=== PATIENT | female | born 1955 | race Caucasian/White ===

== ENCOUNTER 2025-01-03 07:56 | Outpatient (REF) | payer MEDICARE, SELFPAY ==
--- NOTE | ~2025-01-03 | XR_ITS ---
EXAMINATION: XR KNEE, LEFT CLINICAL INFORMATION: M25.562 - Pain in left knee COMPARISON: None available. TECHNIQUE: AP view bilateral knees standing, lateral and patellofemoral views left knee. FINDINGS: RIGHT KNEE: No fracture, dislocation, or suspicious bone lesion. Chondrocalcinosis in the medial and lateral joint compartments. Mild to moderate medial, and mild lateral compartment osteoarthrosis. Normal soft tissues. LEFT KNEE: No fracture, dislocation, or suspicious bone lesion. There is severe lateral compartment joint space narrowing with ckjl-cu-llsq appearance, subchondral sclerosis, and marginal osteophytic spurring. There is compensatory widening of the medial compartment with resultant valgus angulation of the knee. Yybt-[id number] changes of arthritis in the patellofemoral joint. Severe chondrocalcinosis in the medial and lateral compartments. There is a suprapatellar joint effusion with a small associated amorphous calcification. There is no soft tissue abnormality. XR/XR knee LT 3V IMPRESSION: 1. Tricompartmental arthrosis of the LEFT knee, severe in the lateral compartment with resultant valgus angulation of the knee. Iwbo-vy-ornc appearance within the lateral compartment. 2. Diffuse bilateral chondrocalcinosis consistent with CPPD. 3. Left knee suprapatellar joint effusion with calcifications in keeping with calcific bursitis. Electronically signed by: Kwadwo Bernal MD 01/03/2025 11:10 AM EDT
--- OUTSIDE RECORDS SUMMARY | 2025-01-03 08:00 | XMS_ITS | Clinical Summary ---
Author Organization [facility] Address [address] [place] [address] Phone Care Team Providers Care Medical Logistics Specialist Name Role Phone Linda Glover MD Primary Care Provider [phone] Allergies No known active allergies Medications levothyroxine (TIROSINT) 50 mcg Cap Take 50 mcg by mouth every morning. Active lisinopril (PRINIVIL,ZESTR IL) 10 MG tablet Take 10 mg by mouth daily. Active atorvastatin (LIPITOR) 40 MG tablet Take 40 mg by mouth daily. Active triamterene-hyd roCHLOROthiazid e (DYAZIDE) 37.5-25 mg per capsule Take 1 capsule by mouth daily. Active aspirin 325 MG tablet Take 325 mg by mouth 2 (two) times a day. Active acetaminophen (TYLENOL 8 HOUR) 650 MG CR tablet Take 650 mg by mouth every 6 (six) hours as needed for pain (specific location in comments). Active Social History Tobacco Use Types Packs/Day Years Used Date Smoking Tobacco: Never Assessed Education Answer Date Recorded Are you interested in more education? Not on freda e 07/26/2022 Are you concerned about learning? Not on file 07/26/2022 No 07/26/2022 No 07/26/2022 Digital Access Answer Date Recorded No 08/27/2022 No 08/27/2022 No 08/27/2022 Reliable internet access at home? Not on file 08/27/2022 Device with a working camera? Not on file Comments Unknown Sex and Gender Information Value Date Recorded Sex Assigned at Not on file Legal Sex Female 4:54 PM EDT Gender Identity Not on file Sexual Orientation Not on file Last Filed Vital Signs Vital Sign Reading Time Taken Comments Blood Pressure 122/72 07/07/2018 1:35 PM EDT Pulse 68 07/07/2018 1:35 PM EDT Temperature 36.8 C (98.2 F) 07/07/2018 1:35 PM EDT Respiratory Rate 16 07/07/2018 1:35 PM EDT Oxygen Saturation 98% 07/07/2018 1:35 PM EDT Inhaled Oxygen Concentration - - Weight - - Height - - Body Mass Index - - Plan of Treatment Not on file Medical Devices Not on file Insurance [facility] MEDICARE A [facility] MEDICARE A MEDICARE A MEDICARE A Stripe [facility] MEDICARE A Stripe [facility] MEDICARE A MEDICARE A MEDICARE A MEDICARE A Care Teams Medical Logistics Specialist Relationship Specialty Start Date End Date Linda Glover MD [email or web address] [email or web address] - General Family Medicine 06/19/18 Additional Source Comments The information contained in this document represents components of the legal health record. It is not the complete legal health record.[facility]
== END 2025-01-03 07:57 | disposition home or self-care (01) ==
LOC: HO.HOSX 07:56
PROVIDERS: Visit Provider Orthopaedic Surgery
DX: M17.12 Unilateral primary osteoarthritis, left knee (principal)
CPT/HCPCS: 73562; 99202

== ENCOUNTER 2025-01-03 10:55 | Outpatient (AMB) | payer MEDICARE, BC, SELFPAY ==
--- NOTE | 2025-01-03 10:56 | A.OFFVIS_ITS ---
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 Patient reports pain and grinding in left knee that has been ongoing for a least 1- 2years now. There is increased pain while ambulating stairs, worse when climbing stairs, prolonged walking and standing. she is currently taking Tylenol with mild relief. No History of physical therapy and believes she has tried cortisone in the past with little relief. Hx of Right YAMILETH 06/16/2018 Hx of partial Nephrectomy May 2024 - Renal Cell Carcinoma. 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 Patient reports pain and grinding in left knee that has been ongoing for a least 1- 2years now. There is increased pain while ambulating stairs, worse when climbing stairs, prolonged walking and standing. she is currently taking Tylenol with mild relief. No History of physical therapy and believes she has tried cortisone in the past with little relief. Hx of Right YAMILETH 06/16/2018 Hx of partial Nephrectomy May 2024 - Renal Cell Carcinoma. History of carotid endarterectomy approximately 3-4 months ago Hx of gout, prediabetes, plantar faciitis and bilateral foot neuropathy [facility] Surgical History (Updated 01/03/25 @ 11:16 by Celine Carey MA) S/P right knee arthroscopy (Unknown) S/P anterior Bankart repair of right shoulder (Unknown) H/O partial nephrectomy (~05/2024) History of total right hip arthroplasty (06/16/18) Physical Exam Exam Exam: Pleasant woman no acute distress She has moderate valgus malalignment 10-15 degrees that is fixed. She has a externally rotated antalgic gait and tenderness to palpation lateral compartment Her dorsalis pedis pulse is palpable and she is firing her EHL/tib ant/gastrocs. Vital Signs: BMI result Body Mass Index 34.7 Results Reviewed Results Reviewed: I personally reviewed relevant radiographs. IMPRESSION: 1. Tricompartmental arthrosis of the LEFT knee, severe in the lateral compartment with resultant valgus angulation of the knee. Wrpx-fv-eodn appearance within the lateral compartment. 2. Diffuse bilateral chondrocalcinosis consistent with CPPD. 3. Left knee suprapatellar joint effusion with calcifications in keeping with calcific bursitis. Assessment & Plan Assessment & Plan (1) Arthritis of left knee: Code(s): M17.12 - Unilateral primary osteoarthritis, left knee Category: Medical Plan: This is a 69-year-old woman with severe osteoarthritis of the left knee. She has a moderate valgus malalignment that is causing her difficulty ambulating. I recommend knee arthroplasty. I did discuss with her nonoperative options . I do not know of a nonoperative option that will correct her malalignment and improve her pain. We did discuss injections and physical therapy but she can barely walk and her valgus alignment would benefit from correction sooner rather than later. I discussed this with her. She agrees. She has some risk factors for surgery including a history of a carotid endarterectomy and a history of a partial nephrectomy. I think she is a good candidate for surgery however and we will have her evaluated by her PCP and her talent acquisition relationship manager prior to intervention. I discussed this with her. Explained the risks, benefits and alternatives to surgery including, but not limited to, the risk of infection, stiffness, need for additional surgery, aseptic loosening, damage to blood vessels and nerves especially given her valgus malalignment in the possibility of peroneal nerve injury. In addition I discussed the medical complications that can be associated with surgery including blood clots, organ dysfunction complications from anesthesia. All her questions were answered to the best of my abilities. She expressed understanding and we will proceed forward accordingly. Orders: Orders XR knee LT 3V Today M25.562 - Pain in left knee Coding Level of Care Code New Pt Level 4 (83528) Diagnoses Arthritis of left knee M17.12
[2025-01-03 11:07] VITALS: BMI 34.7
== END 2025-01-03 11:39 | disposition home or self-care (01) ==
LOC: HO.HOS 10:55
PROVIDERS: Visit Provider Orthopaedic Surgery
DX: M17.12 Unilateral primary osteoarthritis, left knee (principal)
CPT/HCPCS: 99204

== ENCOUNTER → 2025-01-03 10:56 | Outpatient (BNV) | payer MEDICARE, BC, SELFPAY | PROVIDERS: Visit Provider Radiology Diagnostic Radiology | DX: M17.12 Unilateral primary osteoarthritis, left knee (principal); M11.262 Other chondrocalcinosis, left knee | CPT/HCPCS: 73562 ==

== ENCOUNTER 2025-02-25 12:54 | Outpatient (REF) | payer MEDICARE, BC, SELFPAY ==
--- OUTSIDE RECORDS SUMMARY | 2025-02-22 23:59 | XMS_ITS | Continuity of Care Document ---
Author Organization [facility] Address [address] [place] [address]- Care Team Providers Care Manager Search Name Role Phone Cele ACOSTA, Clarisse Knott Primary Care Physician Encounter [facility] Date(s): 01/23/25 - 02/22/25 [facility] [address] [place] [id number]- Attending Physician: Harpreet Moran Admitting Physician: Harpreet Moran Referring Physician: Harpreet Moran Encounter Type: Triage Allergies, Adverse Reactions, Alerts Substance Criticality Severity Reaction Reaction Severity Status codeine Nausea Active Medications Acetaminophen = 650 mg, Every 6 hours, 0 Refills, Maintenance, 06/26/18 10:22:27 AM EDT Start Date: 06/26/18 Status: Ordered Medication Dispense Status: Completed Total Allowed Fills: 1 Fills Dispensed: 0 Align 4 mg oral capsule 1 capsule = 4 mg, By Mouth, Daily, # 28 capsule, 0 Refills, Maintenance, 06/16/24 12:44:00 PM EDT, Capsule, Partial fill upon patient request if the prescription is for a schedule II opioid drug. Start Date: 06/16/24 Status: Ordered Medication Dispense Status: Completed Quantity: 28.0 Unit: capsule Total Allowed Fills: 1 Fills Dispensed: 0 allopurinol 100 mg oral tablet 100 mg, 1, tablet, By Mouth, Daily, # 30 tablet, Refills 0, Maintenance, 11/09/24 9:41:00 AM EDT, Partial fill upon patient request if the prescription is for a schedule II opioid drug. Start Date: 11/09/24 Status: Ordered Medication Dispense Status: Completed Quantity: 30.0 Unit: tablet Total Allowed Fills: 1 Fills Dispensed: 0 aspirin 81 mg oral capsule 1 capsule = 81 mg, By Mouth, Every 24 hours, 0 Refills, Maintenance, 11/18/22 9:13:00 AM EDT, Partial fill upon patient request if the prescription is for a schedule II opioid drug. Start Date: 11/18/22 Status: Ordered Medication Dispense Status: Completed Total Allowed Fills: 1 Fills Dispensed: 0 atorvastatin 80 mg oral tablet 1 tablet = 80 mg, By Mouth, Daily Start Date: 06/16/24 Status: Ordered Medication Dispense Status: Completed Total Allowed Fills: 1 Fills Dispensed: 0 chlorthalidone 25 mg oral tablet 25 mg, 1, tablet, By Mouth, Daily, Refills 0, Maintenance, 11/18/22 9:14:00 AM EDT, Partial fill upon patient request if the prescription is for a schedule II opioid drug. Start Date: 11/18/22 Status: Ordered Medication Dispense Status: Completed Total Allowed Fills: 1 Fills Dispensed: 0 felodipine 2.5 mg oral tablet, extended release 2 tablet = 5 mg, By Mouth, Daily, 0 Refills, Maintenance, 11/18/22 9:14:00 AM EDT, Partial fill uponpatient request if the prescription is for a schedule II opioid drug. Start Date: 11/18/22 Status: Ordered Medication Dispense Status: Completed Total Allowed Fills: 1 Fills Dispensed: 0 levothyroxine 0.088 mg oral tablet TAKE 1 TABLET BY MOUTH DAILY PLUS AN EXTRA HALF-TABLET ON SUNDAYS (7.5 TABLETS PER WEEK) Start Date: 06/16/24 Status: Ordered Medication Dispense Status: Completed Total Allowed Fills: 1 Fills Dispensed: 0 lisinopril 40 mg oral tablet 1 tablet = 40 mg, By Mouth, Daily Start Date: 06/16/24 Status: Ordered Medication Dispense Status: Completed Total Allowed Fills: 1 Fills Dispensed: 0 melatonin 5 mg oral tablet 1 tablet = 5 mg, By Mouth, Daily at bedtime, PRN for insomnia, # 60 tablet, 0 Refills, Maintenance,06/16/24 12:37:00 PM EDT, Tablet, Partial fill upon patient request if the prescription is for a schedule II opioid drug. Start Date: 06/16/24 Status: Ordered Medication Dispense Status: Completed Quantity: 60.0 Unit: tablet Total Allowed Fills: 1 Fills Dispensed: 0 metoprolol 100 mg oral tablet 100 mg, 1, tablet, By Mouth, Daily, Refills 0, Maintenance, 11/18/22 9:14:00 AM EDT, Partial fill upon patient request if the prescription is for a schedule II opioid drug. Start Date: 11/18/22 Status: Ordered Medication Dispense Status: Completed Total Allowed Fills: 1 Fills Dispensed: 0 One-A-Day 50+ By Mouth, Daily, 0 Refills, Maintenance, 11/18/22 9:14:00 AM EDT, Partial fill upon patient request if the prescription is for a schedule II opioid drug. Start Date: 11/18/22 Status: Ordered Medication Dispense Status: Completed Total Allowed Fills: 1 Fills Dispensed: 0 Plavix 75 mg oral tablet 75 mg, 1, tablet, By Mouth, Daily, # 90 tablet, Refills 3, Tot. Refills 3, Maintenance, 11/02/24 1:35:00 PM EDT, Route to Pharmacy Electronically, [facility]/pharmacy #[id number], Partial fill upon patient request if the prescription is for a schedule II opioid drug., 168, cm, 11/02/24 13:06:00 EDT, Height, 99.6,kg, 06/18/24 13:34:00 EDT, Dry Weight Start Date: 11/02/24 Status: Ordered Medication Dispense Status: Completed Quantity: 90.0 Unit: tablet Total Allowed Fills: 4 Fills Dispensed: 0 Tylenol Extra Strength PM 500 mg-25 mg oral tablet 1 tablet, By Mouth, Daily at bedtime, PRN for sleep, # 10 tablet, 0 Refills, Maintenance, 06/16/24 12:37:00 PM EDT, Tablet, Partial fill upon patient request if the prescription is for a schedule II opioid drug. Start Date: 06/16/24 Status: Ordered Medication Dispense Status: Completed Quantity: 10.0 Unit: tablet Total Allowed Fills: 1 Fills Dispensed: 0 Vitamin B12 = 50 mcg, Daily, 0 Refills, Maintenance, 11/18/22 9:14:00 AM EDT, Partial fill upon patient request if the prescription is for a schedule II opioid drug. Start Date: 11/18/22 Status: Ordered Medication Dispense Status: Completed Total Allowed Fills: 1 Fills Dispensed: 0 Problem List Condition Confirmation Course Effective Dates Status H ealth Status Informant HLD - Hyperlipidemia Confirmed Active HTN - Hypertension Confirmed Active Hypothyroidism Confirmed Active Obese class II Confirmed Active Social History Social History Type Response Smoking Status Never (less than 100 in lifetime) entered on: 09/30/23 Sex Sex Representation Female (finding) Patient Care team information Care Team Personnel Name: Cele ACOSTA, Clarisse Knott Position: [facility] Outreach Member Role: PCP Address: [address] [place] [address] Telecom: Name: Carolann Sampson RN Position: S RN Member Role: Primary Care Nurse Name: Shelly Penaloza RN Position: [facility] RN Member Role: Primary Care Nurse Care Team Related Persons Name: JACEK QUINTANILLA Insurance Providers Guarantor name: KOJO QUINTANILLA Health Plan Information #: 1 Payer: MEDICARE B Payer Identifier: LISA Member Number: [id number] Group Number: [id number] Subscriber Identifier: NA Relationship to Subscriber: self Coverage Type: NA Coverage Verification Date: Telecom: NA Address: Health Plan Information #: 2 Payer: [facility] Payer Identifier: NA Member Number: [id number] Group Number: [id number] Subscriber Identifier: NA Relationship to Subscriber: self Coverage Type: Medicare Other Coverage Verification Date: Telecom: Address:
--- NOTE | ~2025-02-25 | CT_ITS ---
EXAMINATION: CT KNEE WITHOUT CONTRAST, LEFT CLINICAL INFORMATION: Osteoarthritis left knee. Biomet protocol for surgical planning. COMPARISON: Left knee x-ray December 2024. TECHNIQUE: Axial images through the left lower extremity for presurgical planning purposes. This CT examination was performed using dose optimization techniques as appropriate, variously including the following: *Automated exposure control *Adjustment of mA and/or kV according to patient size (this includes techniques or standardized protocols for targeted exams where dose is matched to indication/reason for exam; i.e. extremities or head) *Use of iterative reconstruction technique FINDINGS: There is severe left knee osteoarthritis with joint space narrowing, osteophyte formation and chondrocalcinosis. There is a small left knee joint effusion. There is atherosclerotic disease. Images of the left hip demonstrate mild osteoarthritis with small osteophytes. Images of the left ankle demonstrate plantar calcaneal spur and soft tissue thickening and calcification of the plantar fascia. CT/CT knee LT wo IV con IMPRESSION: CT of the left lower extremity for presurgical planning. Electronically signed by: Melany Bernard MD 02/25/2025 04:29 PM [facility]
--- OUTSIDE RECORDS SUMMARY | 2025-02-25 12:56 | XMS_ITS | Clinical Summary ---
Author Organization [facility] Address [address] [place] [phone] Phone Care Team Providers Care Assistant Pastry Chef Name Role Phone Linda Glover MD Primary Care Provider [phone] Allergies No known active allergies Medications levothyroxine [...] file Medical Devices Not on file Insurance [facility] Address: [facility] [id number] [place], [place] [id number] MEDICARE A [facility] MEDICARE A MEDICARE A MEDICARE A [employer] [facility] MEDICARE A [employer] [facility] MEDICARE A MEDICARE A MEDICARE A MEDICARE A Care Teams Assistant Pastry Chef Relationship Specialty Start Date End Date Linda Glover MD [email or web address] PCP - General Family Medicine 06/19/18 Additional Source Comments The information contained in this document represents components of the legal health record. It is not the complete legal health record.[facility]
== END 2025-02-25 12:55 | disposition home or self-care (01) ==
LOC: HO.CT 12:54
PROVIDERS: Visit Provider Physician Assistant
DX: M17.12 Unilateral primary osteoarthritis, left knee (principal)
CPT/HCPCS: 73700

== ENCOUNTER → 2025-02-25 12:55 | Outpatient (BNV) | payer MEDICARE, BC, SELFPAY | PROVIDERS: Visit Provider Radiology Diagnostic Radiology | DX: M17.12 Unilateral primary osteoarthritis, left knee (principal) | CPT/HCPCS: 73700 ==

== ENCOUNTER → 2025-03-17 10:20 | Outpatient (BNVA) | payer MEDICARE, BC, SELFPAY | DX: Z01.818 Encounter for other preprocedural examination (principal) ==